=== PATIENT | male | born 1980 | race Caucasian/White ===

== ENCOUNTER 2018-04-22 09:22 | Emergency (ER) | payer OTHER, SELFPAY ==
[2018-04-22 09:22] VITALS: BP 125/97; PULSE 61; RESP 18; TEMP 36.6; O2SAT 99; BMI 23.6
[2018-04-22 09:44] VITALS: BP 119/86; BP 123/79; BP 125/85; PULSE 64; PULSE 66; PULSE 71
--- NOTE | 2018-04-22 09:48 | ED_ITS ---
HPI - Dizziness General Chief Complaint: Dizziness Stated Complaint: dizzy this morning Time Seen by Provider: 04/22/18 09:29 Source: patient Mode of arrival: ambulatory Limitations: no limitations History of Present Illness HPI Narrative: Patient is a 38-year-old male who presents with acute-onset dizziness. This is worse when he turns his head. It started sometime this morning. He got a normal may breakfast her he needs children chopped wood got into the car to drive to work when it started. He was able to drive himself here to the emergency department. He has no chest pain or heart palpitations. He feels slightly nauseated overall extremities feel weak but no focal weakness. He has not passed out nor does he feel like he will. MD complaint: dizziness and lightheadedness Related Data Previous Rx's Medication Instructions Recorded meclizine 25 mg PO TID PRN #10 tab 04/22/18 ondansetron 4 mg PO Q6-8H PRN 4 Days #10 tab 04/22/18 Review of Systems Review of Systems All systems reviewed & are unremarkable except as noted in HPI and below Constitutional Denies chills, Denies fever(s), Denies lethargy and Denies weakness Cardiovascular Reports lightheadedness, Denies dyspnea and Denies dyspnea on exertion Respiratory Denies cough, Denies dyspnea, Denies dyspnea on exertion and Denies wheezing Gastrointestinal Gastrointestinal: Denies abdominal pain, Denies change in bowel habits, Denies diarrhea, Reports nausea and Denies vomiting Musculoskeletal Denies back pain, Denies muscle weakness, Denies numbness and Denies tingling Integumentary/Breasts Denies pruritus, Denies erythema, Denies rash and Denies wounds Neurologic Denies numbness, Denies tingling and Denies weakness Allergic/Immunologic Denies wheezing [facility] Medical History Healthy adult (Acute) Social History Smoking Status: Former smoker Exam Initial Vital Signs Initial Vital Signs: Vital Signs Temperature 97.9 F 04/22/18 09:22 Pulse Rate 61 04/22/18 09:22 Respiratory Rate 18 04/22/18 09:22 Blood Pressure 125/97 H 04/22/18 09:22 Pulse Oximetry 99 04/22/18 09:22 GENERAL: Well-appearing, well-nourished and in no acute distress. HEENT: Head atraumatic,EOMI, pupils reactive, face symmetric, CARDIOVASCULAR: Regular rate and rhythm without murmurs, rubs or gallops. RESPIRATORY: Breath sounds equal bilaterally, no wheezes rales or rhonchi. ABDOMEN: Soft, nontender. Normoactive bowel sounds all 4 quadrants. No guarding or rebound. EXTREMITIES: Normal range of motion, no clubbing or edema. Neurovascularly intact NEUROLOGICAL: Alert and oriented x4.Normal gait and speech. Cranial nerves II through XII grossly intact. Good [id number], good [id number], strength equal bilaterally, no dysarthria or aphasia, sensation in tact to soft touch bilaterally, no visual changes, no facial droop SKIN: Warm, dry, no laceration, no petechiae, no rashes or lesions. Scores NIH Stroke Scale Level of Conciousness: Alert, keenly responsive Ask month/age: Answers both questions correctly. Open/close eyes, close hand: Performs both tasks correctly Best gaze horizontal: Normal Visual cook: No visual loss Facial palsy: Normal symetrical movement Left arm drift: No drift for full 10 sec Right arm drift: No drift for full 10 sec Left leg drift: No drift for full 10 sec Right leg drift: No drift for full 10 sec Limb ataxia: Absent Sensory on face/arms/legs: Normal, no sensory loss Best language: No aphasia, normal Dysarthria: Normal Extinction or inattention: No abnormality Total NIH Stroke scale score: 0 Course Orders Ordered: ED Orders 04/22/18 09:30 Basic Metabolic Panel Stat Complete Blood Count AUTO DIFF Stat 04/22/18 09:33 EKG-12 Lead Routine Discontinued Medications Sodium Chloride (Normal Saline 0.9%) 1,000 mls @ 1,000 mls/hr IV CONT MILO Last Infusion: 04/22/18 11:20 Dose: 1,000 mls/hr Admin: 04/22/18 10:34 Dose: 1,000 mls/hr Meclizine HCl (Antivert) 25 mg PO NOW ONE Stop: 04/22/18 09:43 Last Admin: 04/22/18 10:34 Dose: 25 mg Ondansetron HCl (Zofran) 4 mg IV NOW ONE Stop: 04/22/18 09:43 Last Admin: 04/22/18 10:34 Dose: 4 mg Vital Signs - 8 hr 04/22/18 09:22 04/22/18 09:44 04/22/18 10:00 Temperature 97.9 F Pulse Rate 61 62 Pulse Rate [Orthostatic Lying] 64 Pulse Rate [Orthostatic Sitting] 71 Pulse Rate [Orthostatic Standing] 66 Respiratory Rate 18 13 Blood Pressure 125/97 H Blood Pressure [Left Arm] 118/76 Blood Pressure [Orthostatic Lying] 119/86 Blood Pressure [Orthostatic Sitting] 123/79 Blood Pressure [Orthostatic Standing] 125/85 Pulse Oximetry 99 100 04/22/18 11:00 Temperature Pulse Rate 59 L Pulse Rate [Orthostatic Lying] Pulse Rate [Orthostatic Sitting] Pulse Rate [Orthostatic Standing] Respiratory Rate 11 L Blood Pressure Blood Pressure [Left Arm] 116/78 Blood Pressure [Orthostatic Lying] Blood Pressure [Orthostatic Sitting] Blood Pressure [Orthostatic Standing] Pulse Oximetry 100 MDM - Dizziness Lab Data Attestation: I reviewed the patient's lab results. Result diagrams: 04/22/18 09:30 04/22/18 09:30 Lab Results 04/22/18 04/22/18 Range/Units 09:30 09:30 WBC 4.3 L (4.5-11.0) X10^3/uL RBC 5.04 (4.5-5.9) X10^6/uL Hgb 15.0 (13.5-17.5) g/dL Hct 44.5 (41-53) % MCV 88.3 (80-100) fL MCH 29.7 (26-34) PG MCHC 33.7 (30-36) % RDW 13.5 (11.6-14.8) % Plt Count 224 (150-400) X10^3/uL Neut % (Auto) 54.9 (50-75) % Lymph % (Auto) 35.3 (25-40) % [place] % (Auto) 7.7 (3-14) % Eos % (Auto) 1.7 L (2-4) % Baso % (Auto) 0.4 (0-2) % Neut # (Auto) 2400 L (9122-1669) /uL Sodium 144 (137-145) mmol/L Potassium 4.1 (3.4-5.1) mmol/L Chloride 100 (98-107) mmol/L Carbon Dioxide 32 (22-32) mmol/L BUN 17 (9-20) mg/dL Creatinine 0.90 (0.66-1.25) mg/dL Estimated GFR > 60.0 (>60) mL/min BUN/Creatinine Ratio 18.9 (6-22) Glucose 92 (70-100) mg/dL Calcium 9.7 (8.4-10.2) mg/dL ECG Data Attestation: I personally reviewed and interpreted this ECG as follows: Prior ECG tracings: not available for review Interpretation: Normal sinus rhythm rate [address] changes no T-wave inversion MDM Narrative Medical decision making narrative: Patient is overall feeling much better. Tolerating oral fluids. Able to sit up keeping his eyes open. Discharge Plan Departure Patient Disposition: Home Clinical Impression: Benign paroxysmal positional vertigo Discharge Date/Time: 04/22/18 11:25 Interventions: ED Discharge Assessment Last Done: 04/22/18 11:20 Instructions: Benign Paroxysmal Positional Vertigo Activity Restrictions/Additional Instructions: *You have been diagnosed with benign paroxysmal positional vertigo *What to do: This hopefully will resolve spontaneously *Continue to take medications as directed Meclizine every 8 hr if needed for dizziness Zofran every 6-8 hours as needed for nausea vomiting *Follow up with your primary care provider in 2-3 days *Return to ER if you should have worsening symptoms, persistent vomiting or any new, worsening or concerning symptoms Prescriptions: New meclizine 25 mg tablet 25 mg PO TID PRN (Reason: dizziness) Qty: 10 RF: 0 ondansetron 4 mg tablet,disintegrating 4 mg PO Q6-8H PRN (Reason: nausea and vomiting) 4 Days Qty: 10 RF: 0 Referrals: [facility] [employer] [facility] [Provider Group]
[2018-04-22 09:50] LABS: Add Manual Diff / Slide Review NO; Basophils Percent Auto 0.4 % (0-2); Eosinophils Percent Auto 1.7 % (2-4); Hematocrit 44.5 % (41-53); Lymphocytes Percent Auto 35.3 % (25-40); Mean Corpuscular HGB Conc 33.7 % (30-36); Mean Corpuscular Hemoglobin 29.7 PG (26-34); Mean Corpuscular Volume 88.3 fL (80-100); Monocytes Percent Auto 7.7 % (3-14); Neutrophils Absolute Auto 2400 /uL (3000-5900); Neutrophils Percent Auto 54.9 % (50-75); Platelet Count 224 X10^3/uL (150-400); Red Blood Cell Count 5.04 X10^6/uL (4.5-5.9); Red Cell Distribution Width 13.5 % (11.6-14.8); White Blood Cell Count 4.3 X10^3/uL (4.5-11.0)
[2018-04-22 09:55] LABS: BUN Creatinine Ratio 18.9 (6-22); Blood Urea Nitrogen 17 mg/dL (9-20); Calcium 9.7 mg/dL (8.4-10.2); Carbon Dioxide 32 mmol/L (22-32); Chloride 100 mmol/L (98-107); Estimated Glomerular Filt Rate > 60.0 mL/min (>60); Glucose 92 mg/dL (70-100); HEMOLYSIS < 15 (0-50); Potassium 4.1 mmol/L (3.4-5.1); Sodium 144 mmol/L (137-145)
[2018-04-22 10:00] VITALS: BP 118/76; PULSE 62; RESP 13; O2SAT 100
[2018-04-22] MEDS: MECLIZINE HCL 12.5 MG TABLET 25 MG PO (10:34)
[2018-04-22] MEDS: SODIUM CHLORIDE 0.9% 1,000 ML 1000 ML IV (10:34)
[2018-04-22] MEDS: ONDANSETRON 4 MG/2 ML INJ IV (10:34)
[2018-04-22 11:00] VITALS: BP 116/78; PULSE 59; RESP 11; O2SAT 100
== END 2018-04-22 11:25 | disposition home or self-care (01) ==
PROVIDERS: Emergency Provider Emergency Medicine
DX: H81.10 Benign paroxysmal vertigo, unspecified ear (principal)
CPT/HCPCS: 80048; 85025; 93005; 93010; 96361; 96374; 99283; 99284; J2405